=== PATIENT | female | born 1960 | race Caucasian/White ===

== ENCOUNTER 2017-05-23 19:31 | Emergency (ER) | payer BC ==
[~2017-05-23] VITALS: Ht 165.1 cm; Wt 49.9 kg
--- NOTE | 2017-05-23 19:50 | NUR ---
BIB CAREGIVER C/O L EYEBROW WOUND, R WRIST PAIN AND SWELLING, R BECKFORD ABRASION S/P TRIPPED AND FELL. DENIES LOC. BREATHING EVEN AND UNLABORED. NO SOB. VITALS STABLE. SAFETY AND COMFORT MEASURES IN PLACE. AWAITING MD ORDERS.
--- NOTE | 2017-05-23 20:25 | NUR ---
NEW IV STARTED ON LFA, 20 G. BLOOD DRAWN AND SENT TO LAB.
[2017-05-23 20:33] LABS: BASOPHILS # (AUTO) 0.1 /CMM (0.0-0.2); BASOPHILS % (AUTO) 0.7 % (0.0-2.0); EOSINOPHILS # (AUTO) 0.1 /CMM (0.0-0.7); EOSINOPHILS % (AUTO) 0.7 % (0.0-6.0); HEMATOCRIT 40 % (33-45); HEMOGLOBIN 13.7 g/dL (11.5-14.8); LYMPHOCYTES % (AUTO) 26.6 % (20.0-44.0); MEAN CORPUSCULAR HEMOGLOBIN 34 PG (26.0-33.0); MEAN CORPUSCULAR HGB CONC 34 g/dl (31.0-36.0); MEAN CORPUSCULAR VOLUME 99 fL (82-100); MONOCYTES % (AUTO) 9.2 % (2.0-12.0); NEUTROPHILS % (AUTO) 62.8 % (43.0-81.0); PLATELET COUNT (AUTO) 264 /CMM (150-450); RED BLOOD CELL COUNT(AUTO) 4.07 MIL/uL (4.0-5.2); WHITE BLOOD COUNT (AUTO) 11.1 K/uL (4.3-11.0)
[2017-05-23 20:48] LABS: INR 0.97 (0.87-1.13); PROTHROMBIN TIME 10.1 SECS (9.5-12.7)
[2017-05-23 21:02] LABS: CALCIUM, SERUM 9.1 mg/dL (8.5-10.1); CARBON DIOXIDE 28 mmol/L (21-32); CHLORIDE 102 mmol/L (98-107); CREATININE 0.7 mg/dL (0.6-1.3); GLUCOSE 98 mg/dL (74-106); POTASSIUM 3.7 mmol/L (3.5-5.1); SODIUM SERUM 138 mmol/L (136-145); UREA NITROGEN, BLOOD 7 mg/dL (7-18)
[2017-05-23 21:10] LABS: TROPONIN I < 0.017 ng/mL (0.00-0.056)
[2017-05-23] MEDS ORDERED: LIDOCAINE /MPF 1% VIAL 5 ML VIAL ONE (21:59)
[2017-05-23 22:49] LABS: APPEARANCE,URINE CLEAR (CLEAR); BILIRUBIN,URINE NEGATIVE (NEGATIVE); BLOOD, URINE NEGATIVE Ery/uL (NEGATIVE); COLOR,URINE YELLOW (YELLOW); KETONES,URINE NEGATIVE (NEGATIVE); LEUKOCYTE ESTERASE ,URINE 1+ (NEGATIVE); NITRITE, URINE NEGATIVE (NEGATIVE); PROTEIN,URINE NEGATIVE (NEGATIVE); UGLUCOSE NEGATIVE (NEGATIVE); UROBILINOGEN,URINE 0.2 EU/dL (0.2)
[2017-05-23 23:02] LABS: BACTERIA,URINE Rare /HPF (None Seen); RBC,URINE 0-2 /HPF (0-2); SQUAMOUS EPITHELIAL CELL,UR 0-2 /HPF (None Seen)
[2017-05-23 23:17] VITALS: BP 151/86
--- NOTE | 2017-05-23 23:20 | NUR ---
Patient discharged to home in stable condition. Written and verbal after care instructions given. Patient verbalizes understanding of instruction.
== END 2017-05-23 23:15 | disposition home or self-care (01) ==
LOC: ER 19:35
DX: S01.112A Laceration without foreign body of left eyelid and periocular area, initial encounter (principal); N39.0 Urinary tract infection, site not specified; C56.9 Malignant neoplasm of unspecified ovary; G40.909 Epilepsy, unspecified, not intractable, without status epilepticus; G93.89 Other specified disorders of brain; J45.909 Unspecified asthma, uncomplicated; R79.1 Abnormal coagulation profile; Z91.012 Allergy to eggs; Z91.011 Allergy to milk products; Z91.013 Allergy to seafood; Z91.018 Allergy to other foods; Z91.09 Other allergy status, other than to drugs and biological substances; W01.198A Fall on same level from slipping, tripping and stumbling with subsequent striking against other object, initial encounter; Y93.89 Activity, other specified; Y92.89 Other specified places as the place of occurrence of the external cause; Y99.9 Unspecified external cause status
CPT/HCPCS: 12011; 36415; 70450; 71010; 73110; 73590; 80048; 81001; 82962; 84484; 85025; 85730; 87086; 93005; 99285; A4606; A6402 ×2; J3490; 81000-TC; Z7610

== ENCOUNTER 2017-07-23 11:39 | Emergency (ER) | payer BC ==
[~2017-07-23] VITALS: Ht 165.1 cm; Wt 45.4 kg
--- NOTE | 2017-07-23 11:40 | NUR ---
DENNIS FROM HOME C/O HEADACHE AND LOWER BACK PAIN S/P FALL LAST THURSDAY. PATIENT APPEARS IN NO APPARENT DISTRESS. VSS
--- NOTE | 2017-07-23 11:40 | NUR ---
DENNIS FROM HOME C/O HEADACHE AND LOWER BACK PAIN S/P FALL LAST THURSDAY. PATIENT APPEARS IN NO APPARENT DISTRESS. VSS
[2017-07-23] MEDS ORDERED: KETOROLAC TROMETHAMINE INJ 30 MG/ML VIAL ONE (12:39)
[2017-07-23] MEDS ORDERED: oxyCODONE/APAP (5/325 MG) 1 UDTAB TABLET ONE (12:39)
[2017-07-23] MEDS ORDERED: CYCLOBENZAPRINE 10 MG TABLET ONE (12:40)
[2017-07-23] MEDS ORDERED: CYCLOBENZAPRINE 10 MG TABLET PO ONE (13:00)
[2017-07-23] MEDS ORDERED: KETOROLAC TROMETHAMINE INJ 60 MG/2 ML VIAL IM ONE (13:00)
[2017-07-23] MEDS ORDERED: oxyCODONE/APAP (5/325 MG) 1 UDTAB TABLET PO ONE (13:00)
--- NOTE | 2017-07-23 15:17 | NUR ---
feels better; DC home with her family
[2017-07-23 15:18] VITALS: BP 128/68
--- NOTE | 2017-07-23 15:18 | NUR ---
Patient discharged to home in stable condition. Written and verbal after care instructions given. Patient verbalizes understanding of instruction.
== END 2017-07-23 15:19 | disposition home or self-care (01) ==
LOC: ER 11:40
DX: G89.29 Other chronic pain (principal); M54.5 Low back pain; R51 Headache; J45.909 Unspecified asthma, uncomplicated; Z91.011 Allergy to milk products; Z91.013 Allergy to seafood; Z91.018 Allergy to other foods; Z91.012 Allergy to eggs
CPT/HCPCS: 72110; 96372; 99284; A4606; J1885; Z7610

== ENCOUNTER 2017-09-02 20:58 | Inpatient (IN) | payer BC ==
[~2017-09-02] VITALS: Ht 162.6 cm; Wt 52.2 kg
[2017-09-02 21:42] LABS: BASOPHILS % (AUTO) 0.4 % (0.0-2.0); EOSINOPHILS % (AUTO) 0.1 % (0.0-6.0); HEMATOCRIT 49 % (33-45); HEMOGLOBIN 17.4 g/dL (11.5-14.8); LYMPHOCYTES # (AUTO) 0.9 /CMM (0.8-4.8); LYMPHOCYTES % (AUTO) 8.3 % (20.0-44.0); MEAN CORPUSCULAR HEMOGLOBIN 34 PG (26.0-33.0); MEAN CORPUSCULAR HGB CONC 35 g/dl (31.0-36.0); MEAN CORPUSCULAR VOLUME 96 fL (82-100); MONOCYTES # (AUTO) 0.4 /CMM (0.1-1.30); MONOCYTES % (AUTO) 3.6 % (2.0-12.0); NEUTROPHILS % (AUTO) 87.6 % (43.0-81.0); PLATELET COUNT (AUTO) 236 /CMM (150-450); RDW COEFFICIENT OF VARIATION 12.1 (11.5-15.0); RED BLOOD CELL COUNT(AUTO) 5.15 MIL/uL (4.0-5.2); WHITE BLOOD COUNT (AUTO) 10.3 K/uL (4.3-11.0)
[2017-09-02 21:53] LABS: CALCIUM, SERUM 8.4 mg/dL (8.5-10.1); CARBON DIOXIDE 25 mmol/L (21-32); CHLORIDE 99 mmol/L (98-107); CREATININE 1.3 mg/dL (0.6-1.3); GLUCOSE 99 mg/dL (74-106); POTASSIUM 3.6 mmol/L (3.5-5.1); SODIUM SERUM 133 mmol/L (136-145); UREA NITROGEN, BLOOD 31 mg/dL (7-18)
[2017-09-02 21:56] LABS: INR 1.07 (0.87-1.13)
[2017-09-02 22:02] LABS: TROPONIN I < 0.017 ng/mL (0.00-0.056)
[2017-09-02] MEDS ORDERED: IV NS 0.9% 1,000 ML BAG IV ONE (22:30)
[2017-09-02] MEDS ORDERED: ASPIRIN 325 MG TABLET PO ONE (22:30)
[2017-09-02 23:00] VITALS: BP 107/69
[2017-09-02] MEDS ORDERED: PRED20TA PO (23:28)
[2017-09-02] MEDS ORDERED: GABA-534 PO (23:28)
[2017-09-02] MEDS ORDERED: IV NS 0.9% 1,000 ML IV PRN (23:40)
[2017-09-03] MEDS ORDERED: ONDANSETRON HCL/PF 4 MG/2 ML VIAL IVP PRN
[2017-09-03] MEDS ORDERED: ZOLPIDEM TARTRATE 5 MG TABLET PO PRN
[2017-09-03] MEDS ORDERED: ACETAMINOPHEN 325 MG TABLET PO PRN
[2017-09-03] MEDS ORDERED: oxyCODONE/APAP (5/325 MG) 1 UDTAB TABLET ONE (00:42)
[2017-09-03] MEDS ORDERED: SUCRALFATE 1 G/10 ML UDC ONE (00:43)
[2017-09-03] MEDS ORDERED: GABAPENTIN 300 MG CAPSULE ONE (00:44)
[2017-09-03] MEDS: SUCRALFATE 1 G/10 ML UDC PO SCH ×5 (01:05→23:32)
[2017-09-03] MEDS: oxyCODONE/APAP (5/325 MG) 1 UDTAB TABLET PO PRN ×3 (01:06→20:14)
[2017-09-03] MEDS ORDERED: ENOXAPARIN SODIUM 40 MG/0.4 ML DISP.SYRIN SQ ONE (01:32)
[2017-09-03] MEDS ORDERED: QUET50TA PO (01:55)
[2017-09-03] MEDS ORDERED: NITR100C PO (01:55)
[2017-09-03] MEDS ORDERED: SULF500T8 PO (01:55)
[2017-09-03] MEDS ORDERED: AMIT10TA6 PO (01:55)
[2017-09-03] MEDS ORDERED: DULO30CA2 PO (01:55)
[2017-09-03] MEDS ORDERED: PRED5TAB48 PO (01:55)
[2017-09-03 04:00] VITALS: BP 108/65
[2017-09-03 06:45] LABS: ALBUMIN 2.8 g/dL (3.4-5.0); BILIRUBIN,TOTAL 0.4 mg/dL (0.2-1.0); CALCIUM, SERUM 7.9 mg/dL (8.5-10.1); CREATININE 0.7 mg/dL (0.6-1.3); MAGNESIUM 1.8 mg/dL (1.8-2.4); PHOSPHORUS 2.4 mg/dL (2.5-4.9); POTASSIUM 3.2 mmol/L (3.5-5.1); TOTAL PROTEIN, SERUM 5.5 g/dL (6.4-8.2)
[2017-09-03 06:46] LABS: BASOPHILS % (AUTO) 0.2 % (0.0-2.0); EOSINOPHILS % (AUTO) 0.2 % (0.0-6.0); HEMATOCRIT 41 % (33-45); HEMOGLOBIN 14.5 g/dL (11.5-14.8); LYMPHOCYTES # (AUTO) 0.8 /CMM (0.8-4.8); LYMPHOCYTES % (AUTO) 11.9 % (20.0-44.0); MEAN CORPUSCULAR HEMOGLOBIN 34 PG (26.0-33.0); MEAN CORPUSCULAR HGB CONC 35 g/dl (31.0-36.0); MEAN CORPUSCULAR VOLUME 97 fL (82-100); MONOCYTES # (AUTO) 0.2 /CMM (0.1-1.30); MONOCYTES % (AUTO) 3.7 % (2.0-12.0); NEUTROPHILS # (AUTO) 5.3 /CMM (1.8-8.9); PLATELET COUNT (AUTO) 190 /CMM (150-450); RDW COEFFICIENT OF VARIATION 12.8 (11.5-15.0); RED BLOOD CELL COUNT(AUTO) 4.27 MIL/uL (4.0-5.2); WHITE BLOOD COUNT (AUTO) 6.3 K/uL (4.3-11.0)
[2017-09-03 06:56] LABS: THYROID STIMULATING HORMONE 4.114 uIU/mL (0.358-3.74)
[2017-09-03] MEDS ORDERED: ENOXAPARIN SODIUM 40 MG/0.4 ML DISP.SYRIN SQ SCH ×3 (07:05→21:00)
[2017-09-03 08:00] VITALS: BP 104/65
[2017-09-03] MEDS ORDERED: predniSONE 20 MG TABLET PO SCH (09:00)
[2017-09-03] MEDS: POTASSIUM CHLORIDE 20 MEQ TAB.PRT.SR PO SCH ×2 (09:32→10:50)
[2017-09-03] MEDS: PANTOPRAZOLE 40 MG TABLET.DR PO SCH (09:33)
[2017-09-03] MEDS: ASPIRIN EC 81 MG TABLET.DR PO SCH (09:34)
[2017-09-03] MEDS: MORPHINE SULFATE INJ 4 MG/ML DISP.SYRIN IV PRN (11:42)
[2017-09-03 13:33] LABS: HEMOGLOBIN 14.6 g/dL (11.5-14.8)
[2017-09-03] MEDS ORDERED: NEUTRA PHOS 1 POWD.PACKET PO ONE (14:30)
[2017-09-03 20:00] VITALS: BP 118/68
[2017-09-03] MEDS ORDERED: GABAPENTIN 300 MG CAPSULE PO SCH (22:00)
[2017-09-04] MEDS: SUCRALFATE 1 G/10 ML UDC PO SCH ×2 (06:11→12:25)
[2017-09-04 06:30] LABS: BASOPHILS % (AUTO) 0.5 % (0.0-2.0); EOSINOPHILS # (AUTO) 0.1 /CMM (0.0-0.7); EOSINOPHILS % (AUTO) 3.1 % (0.0-6.0); HEMATOCRIT 40 % (33-45); HEMOGLOBIN 14.1 g/dL (11.5-14.8); LYMPHOCYTES # (AUTO) 1.1 /CMM (0.8-4.8); LYMPHOCYTES % (AUTO) 25.2 % (20.0-44.0); MEAN CORPUSCULAR HEMOGLOBIN 34 PG (26.0-33.0); MEAN CORPUSCULAR HGB CONC 35 g/dl (31.0-36.0); MEAN CORPUSCULAR VOLUME 96 fL (82-100); MONOCYTES # (AUTO) 0.4 /CMM (0.1-1.30); MONOCYTES % (AUTO) 8.5 % (2.0-12.0); NEUTROPHILS # (AUTO) 2.8 /CMM (1.8-8.9); NEUTROPHILS % (AUTO) 62.7 % (43.0-81.0); PLATELET COUNT (AUTO) 181 /CMM (150-450); RDW COEFFICIENT OF VARIATION 12.8 (11.5-15.0); RED BLOOD CELL COUNT(AUTO) 4.16 MIL/uL (4.0-5.2); WHITE BLOOD COUNT (AUTO) 4.5 K/uL (4.3-11.0)
[2017-09-04 06:42] LABS: CALCIUM, SERUM 8.4 mg/dL (8.5-10.1); CREATININE 0.5 mg/dL (0.6-1.3); MAGNESIUM 1.7 mg/dL (1.8-2.4); PHOSPHORUS 2.6 mg/dL (2.5-4.9); POTASSIUM 3.7 mmol/L (3.5-5.1)
[2017-09-04 08:00] VITALS: BP 116/69
[2017-09-04] MEDS ORDERED: ASPI-1152 PO (09:07)
[2017-09-04] MEDS: PANTOPRAZOLE 40 MG TABLET.DR PO SCH (09:42)
[2017-09-04] MEDS: ASPIRIN EC 81 MG TABLET.DR PO SCH (09:42)
[2017-09-04] MEDS ORDERED: MAGNESIUM OXIDE 400 MG TABLET PO ONE (12:00)
[2017-09-04] MEDS: MORPHINE SULFATE INJ 4 MG/ML DISP.SYRIN IV PRN (13:24)
[2017-09-04 16:07] VITALS: BP_SYST 116; BP_SYST 124; BP_DIAS 69; BP_DIAS 74
== END 2017-09-04 16:24 | disposition home or self-care (01) | DRG 205 ==
LOC: ER 20:59 → TELE 22:56 → MED 09-03 10:59
PROVIDERS: ADMIT Nurse Practitioner Acute Care; ATTEND Nurse Practitioner Acute Care
DX: M94.0 Chondrocostal junction syndrome [Tietze] (principal); N17.0 Acute kidney failure with tubular necrosis; E87.1 Hypo-osmolality and hyponatremia; A08.4 Viral intestinal infection, unspecified; E86.0 Dehydration; I49.9 Cardiac arrhythmia, unspecified; M19.90 Unspecified osteoarthritis, unspecified site; J45.909 Unspecified asthma, uncomplicated; G89.29 Other chronic pain
CPT/HCPCS: 36415; 71045-TC; 80048-TC; 80053-TC; 80061-TC; 83735-TC; 84100-TC; 84443-TC; 84484-TC; 85025-TC; 85027-TC; 85730-TC; 87081-TC; 93307-TC; A4606; J1650; J2270; J7030; Z7610

== ENCOUNTER 2019-01-01 10:12 | Inpatient (IN) | payer BC ==
[2019-01-01] VITALS (7 sets, daily range): BP systolic 111–138; BP diastolic 62–81
[~2019-01-01] VITALS: Ht 162.6 cm; Wt 47.2 kg
[~2019-01-01 10:12] MED LIST: AMIT10TA6 PO; ASPI-1152 PO; DULO30CA2 PO; GABA-534 PO; NITR100C PO; PRED5TAB48 PO; QUET50TA PO; SULF500T8 PO
--- NOTE | 2019-01-01 10:12 | NUR ---
BIB RA W C/O ABDOMINAL PAIN "I WOKE UP AT 5AM BECAUSE OF THE PAIN" ,DENIES N/V/D, ALSO C/O R&L SHOULDER PAIN RADIATES TO NECK AREA. TO ER BED 11, HOOKED TO MONITOR, CHANGED TO GOWN, PROVIDED W WARM BLANKET, AWAITING MD MEDLEY.
[2019-01-01] MEDS ORDERED: ASPI-605 PO (10:41)
[2019-01-01] MEDS ORDERED: MELO-105 PO (10:44)
[2019-01-01] MEDS ORDERED: TEMA15CA PO (10:44)
[2019-01-01] MEDS ORDERED: GABA100C GT (10:44)
[2019-01-01] MEDS ORDERED: QUET50TA PO (10:44)
[2019-01-01] MEDS ORDERED: HYDR-4303 PO (10:44)
[2019-01-01] MEDS ORDERED: MORPHINE SULFATE INJ 4 MG/ML DISP.SYRIN ONE ×2 (10:48→13:54)
[2019-01-01] MEDS ORDERED: ONDANSETRON HCL/PF 4 MG/2 ML VIAL ONE (10:48)
[2019-01-01] MEDS ORDERED: ONDANSETRON HCL/PF 4 MG/2 ML VIAL IVP ONE (11:00)
[2019-01-01] MEDS ORDERED: MORPHINE SULFATE INJ 2 MG/ML DISP.SYRIN IV ONE (11:00)
[2019-01-01] MEDS ORDERED: IV NS 0.9% 1,000 ML BAG IV ONE (11:00)
[2019-01-01 11:08] LABS: BASOPHILS # (AUTO) 0.1 /CMM (0.0-0.2); BASOPHILS % (AUTO) 0.3 % (0.0-2.0); EOSINOPHILS % (AUTO) 0.3 % (0.0-6.0); HEMATOCRIT 49 % (33-45); HEMOGLOBIN 16.5 g/dL (11.5-14.8); LYMPHOCYTES # (AUTO) 2.1 /CMM (0.8-4.8); LYMPHOCYTES % (AUTO) 13.3 % (20.0-44.0); MEAN CORPUSCULAR HGB CONC 34 g/dl (31.0-36.0); MEAN CORPUSCULAR VOLUME 99 fL (82-100); MONOCYTES # (AUTO) 0.4 /CMM (0.1-1.30); MONOCYTES % (AUTO) 2.6 % (2.0-12.0); NEUTROPHILS # (AUTO) 13.2 /CMM (1.8-8.9); NEUTROPHILS % (AUTO) 83.5 % (43.0-81.0); PLATELET COUNT (AUTO) 316 /CMM (150-450); RED BLOOD CELL COUNT(AUTO) 4.98 MIL/uL (4.0-5.2); WHITE BLOOD COUNT (AUTO) 15.8 K/uL (4.3-11.0)
[2019-01-01 11:10] LABS: APPEARANCE,URINE Clear (CLEAR); BILIRUBIN,URINE Negative (NEGATIVE); BLOOD, URINE Negative Ery/uL (NEGATIVE); COLOR,URINE Yellow (YELLOW); KETONES,URINE Negative (NEGATIVE); LEUKOCYTE ESTERASE ,URINE Trace (NEGATIVE); NITRITE, URINE Negative (NEGATIVE); PH,URINE 6.5 (5.0-8.0); PROTEIN,URINE Trace mg/dl (NEGATIVE); UGLUCOSE Negative (NEGATIVE); UROBILINOGEN,URINE 0.2 EU/dL (0.2)
[2019-01-01 11:15] LABS: CALCIUM, SERUM 9.2 mg/dL (8.5-10.1); CARBON DIOXIDE 24 mmol/L (21-32); CHLORIDE 102 mmol/L (98-107); CREATININE 0.7 mg/dL (0.6-1.3); GLUCOSE 107 mg/dL (74-106); POTASSIUM 3.9 mmol/L (3.5-5.1); SODIUM SERUM 139 mmol/L (136-145); UREA NITROGEN, BLOOD 13 mg/dL (7-18)
--- NOTE | 2019-01-01 11:20 | NUR ---
WHEELED OUT VIA [facility] FOR CT SCAN.
[2019-01-01 11:24] LABS: BACTERIA,URINE Few /HPF (None Seen); RBC,URINE 0-2 /HPF (0-2); SQUAMOUS EPITHELIAL CELL,UR Few /HPF (None Seen); WBC,URINE 0-2 /HPF (0-3)
[2019-01-01 11:25] LABS: ALANINE AMINOTRANSFERASE 30 U/L (12-78); ALKALINE PHOSPHATASE 65 U/L (46-116); ASPARTATE AMINOTRANSFERASE 17 U/L (15-37); BILIRUBIN,DIRECT 0.2 mg/dL (0.0-0.2); BILIRUBIN,TOTAL 0.6 mg/dL (0.2-1.0); LIPASE 151 U/L (73-393)
--- NOTE | 2019-01-01 11:55 | NUR ---
CALLED Fredy ENGLAND FOR CONSULT
[2019-01-01] MEDS ORDERED: PIPERACILLIN /TAZOBACTAM 3.375 G in IV D5W 50 ML IV ONE (12:00)
[2019-01-01] MEDS ORDERED: VANCOMYCIN 1 GM in IV D5W 250 ML IV ONE (12:00)
--- NOTE | 2019-01-01 12:25 | NUR ---
EPIC PAGED JANET TORRES FOR ADMISSION
--- NOTE | 2019-01-01 12:31 | NUR ---
ICU 261 JANET TORRES DX PERFORATED ULCER
--- NOTE | 2019-01-01 13:13 | NUR ---
REPORT GIVEN TO IMAN ONEAL OF ICU
[2019-01-01] MEDS ORDERED: MORPHINE SULFATE INJ 4 MG/ML DISP.SYRIN IV PRN (14:00)
[2019-01-01] MEDS ORDERED: ONDANSETRON HCL/PF 4 MG/2 ML VIAL IVP PRN (15:00)
[2019-01-01] MEDS: IV LR 1000 ML 1,000 ML IV PRN ×2 (15:55→19:51)
[2019-01-01] MEDS ORDERED: Z GUARD REMEDY 2 OZ OINT TP PRN (16:30)
--- NOTE | 2019-01-01 16:54 | NUR ---
RN NOTE 1535: Admitted 58 F, A/Ox4. Awake, aware for the reason of admission and aware for the plan of care. Accompanied by private caregiver. On 2LPM of O2 via NC. With YULIA PIVs. Started on IVF as ordered, LR @ 100. ST 100's on the monitor. Still noted with 10/10 Morphine and she is aware that she just took Morphine from ER. With abdomen, distended and with pain to touch. Kept NPO for prep of Sx. 1630: S/E by Dr. Murrell, explained re: the procedure, patient and caregiver at bedside verbalized understanding. 1640: OR people transported the patient, VSS but still with pain.
[2019-01-01] MEDS ORDERED: HYDROCORTISONE SOD SUCCINATE 100 MG/2 ML VIAL ONE (17:39)
[2019-01-01] MEDS ORDERED: LIDOCAINE HCL/PF 1% 30 ML SDV ONE (17:47)
[2019-01-01] MEDS ORDERED: BUPIVACAINE MPF 0.5% W/EPI INJ 30 ML VIAL ONE (17:47)
[2019-01-01] MEDS ORDERED: PIPERACILLIN /TAZOBACTAM 3.375 G in IV D5W 50 ML IV SCH (18:00)
--- NOTE | 2019-01-01 19:15 | NUR ---
ARCHITECTURAL MODEL MAKER. RECEIVED THE PT FROM OR VIA BED. S/P LAP WASHOUT GASTRIC BX LEANDER TOUCH REPAIR PERITONEAL ULCER . PT AWAKE, ALERT, VITALS STABLE. THOMAS ABDOMEN GALE INTACT. FC PATENT. OXYGEN 10L VIA MASK. HOB ELEVATED, MULTIPLE BRUISE AND SKIN TEAR NOTED. AFEBRILE. RT NARE NGT LOW INTERMITTENT SUCTION. WILL CONTINUE TO MONITOR VITALS.
[2019-01-01] MEDS ORDERED: FENTANYL PF 100MCG/2ML AMPUL ONE (19:16)
[2019-01-01] MEDS ORDERED: FLUCONAZOLE IN NS,PREMIX 400 MG in PREMIX 1 EA IV SCH ×2 (19:30)
[2019-01-01] MEDS: PIPERACILLIN /TAZOBACTAM 3.375 G in IV D5W 100 ML IV SCH (19:50)
[2019-01-01] MEDS: PANTOPRAZOLE 40 MG VIAL IV SCH (19:53)
--- NOTE | 2019-01-01 20:26 | NUR ---
I.S ORDERED PER MD. PT IS AWAKE AND ALERT. EXPLAINED TO HER HOW TO USE THE I.S. UNABLE TO DO IT RIGHT NOW. PT JUST CAME FROM SURGERY. SHE SAID SHE WILL DO IT TOMM
[2019-01-01] MEDS ORDERED: SODIUM CHLORIDE IV ONE (21:26)
[2019-01-01] MEDS ORDERED: FLUCONAZOLE IV ONE (21:26)
[2019-01-01] MEDS: MORPHINE SULFATE INJ 2 MG/ML DISP.SYRIN IV PRN (23:20)
[2019-01-02] VITALS (25 sets, daily range): BP systolic 124–159; BP diastolic 71–102
[2019-01-02] MEDS: PIPERACILLIN /TAZOBACTAM 3.375 G in IV D5W 100 ML IV SCH ×3 (02:58→17:25)
[2019-01-02 04:27] LABS: BASOPHILS % (AUTO) 0.1 % (0.0-2.0); HEMATOCRIT 39 % (33-45); HEMOGLOBIN 13.1 g/dL (11.5-14.8); LYMPHOCYTES # (AUTO) 0.6 /CMM (0.8-4.8); LYMPHOCYTES % (AUTO) 3.3 % (20.0-44.0); MEAN CORPUSCULAR HGB CONC 34 g/dl (31.0-36.0); MEAN CORPUSCULAR VOLUME 98 fL (82-100); MONOCYTES # (AUTO) 0.4 /CMM (0.1-1.30); MONOCYTES % (AUTO) 2.2 % (2.0-12.0); NEUTROPHILS # (AUTO) 18.8 /CMM (1.8-8.9); NEUTROPHILS % (AUTO) 94.4 % (43.0-81.0); PLATELET COUNT (AUTO) 254 /CMM (150-450); RED BLOOD CELL COUNT(AUTO) 3.95 MIL/uL (4.0-5.2); WHITE BLOOD COUNT (AUTO) 19.9 K/uL (4.3-11.0)
[2019-01-02 04:39] LABS: ALBUMIN 2.5 g/dL (3.4-5.0); BILIRUBIN,TOTAL 0.6 mg/dL (0.2-1.0); CALCIUM, SERUM 7.8 mg/dL (8.5-10.1); CREATININE 0.6 mg/dL (0.6-1.3); MAGNESIUM 1.9 mg/dL (1.8-2.4); PHOSPHORUS 3.3 mg/dL (2.5-4.9); POTASSIUM 4.3 mmol/L (3.5-5.1); TOTAL PROTEIN, SERUM 5.2 g/dL (6.4-8.2)
[2019-01-02 04:47] LABS: THYROID STIMULATING HORMONE 0.54 uIU/mL (0.358-3.74)
[2019-01-02] MEDS: IV LR 1000 ML 1,000 ML IV PRN ×2 (05:06→14:58)
[2019-01-02] MEDS: MORPHINE SULFATE INJ 2 MG/ML DISP.SYRIN IV PRN ×5 (06:34→22:24)
[2019-01-02] MEDS: PANTOPRAZOLE 40 MG VIAL IV SCH (09:10)
--- NOTE | 2019-01-02 10:00 | NUR ---
Called Dr. Fredy Murrell, updated about pt condition & H/H results. Per , okay to transfer out pt from ICU.
--- NOTE | 2019-01-02 11:00 | NUR ---
Pt seen & examined by eric Taylor to downgrade pt to BIN.
--- NOTE | 2019-01-02 15:03 | NUR ---
Pt seen & examined by Dr. Fredy Murrell w/ NNO.
--- NOTE | 2019-01-02 18:56 | NUR ---
RN CLOSING NOTES: No acute changes noted w/in shift. Pt remains A/O x 3. No SOB while on NC at 2lpm. SR on telemonitor. IV line access kept patent & intact w/ no s/sx of infection/infiltration noted w/ LR x 100 cc/hr infusing well. FC draining to BSB w/ adequate UOP. NGT kept on LIS still w/ bilious drainage. 2 GALE drains kept patent & intact w/ serosanguineous output. Safety precautions kept in place at all times. Bed in lowest & locked pos. Call light placed w/in reach. Will endorse to PM RN for LASHAWN, awaiting to be transferred to BIN. Addendum: 01/02/19 at 1924 by NOLVIA XIAO RN Addendum: Use of Incentive Spirometry & breathing techniques reinforced w/ verbalization of understanding.
--- NOTE | 2019-01-02 20:00 | NUR ---
RN INITIAL NOTES: Received pt in bed, Pt A/O x 3. No SOB while on NC at 2lpm. SR on telemonitor. IV line access kept patent & intact w/ no s/sx of infection/infiltration noted w/ LR x 100 cc/hr infusing well. FC draining to BSB w/ adequate UOP. NGT kept on LIS still w/ bilious drainage. 2 GALE drains kept patent & intact w/ serosanguineous output. Safety precautions kept in place at all times. Bed in lowest & locked pos. Call light placed w/in reach. Will cont to monitor . -
[2019-01-02] MEDS: FLUCONAZOLE IN NS,PREMIX 100 MG in PREMIX 1 EA IV SCH ×2 (20:34)
[2019-01-03] VITALS (24 sets, daily range): BP systolic 113–177; BP diastolic 60–120
[2019-01-03] MEDS: PIPERACILLIN /TAZOBACTAM 3.375 G in IV D5W 100 ML IV SCH ×3 (02:07→17:10)
[2019-01-03] MEDS: IV LR 1000 ML 1,000 ML IV PRN ×2 (03:26→11:58)
[2019-01-03 04:19] LABS: BASOPHILS % (AUTO) 0.2 % (0.0-2.0); EOSINOPHILS % (AUTO) 0.8 % (0.0-6.0); HEMATOCRIT 40 % (33-45); LYMPHOCYTES # (AUTO) 0.8 /CMM (0.8-4.8); LYMPHOCYTES % (AUTO) 4.5 % (20.0-44.0); MEAN CORPUSCULAR HGB CONC 33 g/dl (31.0-36.0); MEAN CORPUSCULAR VOLUME 99 fL (82-100); MONOCYTES # (AUTO) 0.4 /CMM (0.1-1.30); MONOCYTES % (AUTO) 2.4 % (2.0-12.0); NEUTROPHILS # (AUTO) 17.2 /CMM (1.8-8.9); NEUTROPHILS % (AUTO) 92.1 % (43.0-81.0); PLATELET COUNT (AUTO) 250 /CMM (150-450); RED BLOOD CELL COUNT(AUTO) 4.01 MIL/uL (4.0-5.2); WHITE BLOOD COUNT (AUTO) 18.6 K/uL (4.3-11.0)
[2019-01-03] MEDS: MORPHINE SULFATE INJ 2 MG/ML DISP.SYRIN IV PRN ×5 (04:24→23:37)
[2019-01-03 04:26] LABS: CALCIUM, SERUM 8.4 mg/dL (8.5-10.1); CREATININE 0.7 mg/dL (0.6-1.3); MAGNESIUM 1.8 mg/dL (1.8-2.4); PHOSPHORUS 2.8 mg/dL (2.5-4.9); POTASSIUM 4.1 mmol/L (3.5-5.1)
--- NOTE | 2019-01-03 06:48 | NUR ---
RN CLOSING NOTES: No acute changes noted w/in shift. Pt remains A/O x 3. No SOB while on NC at 3lpm. SR on telemonitor. IV line access kept patent & intact w/ no s/sx of infection/infiltration noted w/ LR x 100 cc/hr infusing well. FC draining to BSB w/ adequate UOP. NGT kept on LIS still w/ bilious drainage. 2 GALE drains kept patent & intact w/ serosanguineous output. Safety precautions kept in place at all times. Bed in lowest & locked pos. Call light placed w/in reach. Will endorse to AM RN for LASHAWN.
--- NOTE | 2019-01-03 07:30 | NUR ---
FIG CAPRIFIER OPENING NOTES: Received report from pm nurse.pt in bed, Pt A/O x 4. No SOB while on NC at 2lpm. SR on telemonitor HR 91. IV line patent & intact w/ no s/sx of infection/infiltration noted w/ LR x 100 cc/hr infusing well. FC draining clear yellow urine. NGT low intermittent suction. 2 GALE drains kept patent & intact w/ serosanguineous output. Safety precautions kept in place . Bed in lowest & locked position. Call light placed w/in reach.bed alarm on . Will cont to monitor .
--- NOTE | 2019-01-03 08:55 | NUR ---
WOUND CARE CONSULT: PT PRESENTS WITH LEFT ARM SKIN TEARS, MULTIPLE AREAS OF BRUISING WITH FRAGILE SKIN AND HEALED AREAS TO UPPER EXTREMITIES, RT LOWER LEG WOUND AND BRUISING WITH FRAGILE SKIN TO BILATERAL LOWER LEGS, PRESENT ON ADMISSION. PT HAS VERY BONY SACRAL AREA. PT NOTED TO HAVE ABDOMINAL INCISION WITH RT AND LEFT GALE DRAINS. DEFER TO SURGEON FOR ABDOMINAL INCISION AND GALE DRAINS. RECOMMEND DPM CONSULT FOR RT LOWER LEG. DR GAMBOA NOTIFIED OF CONSULT REQUEST. PT HAS HISTORY OF CHRONIC STEROID USE. WILL SEE PRN. BALTAZAR IN AGREEMENT WITH PLAN OF CARE. PT ON LIANET [facility] AIRLO BED. Addendum: 01/03/19 at 0858 by TREY AMBROSIO Amended: Links added. Addendum: 01/03/19 at 0901 by TREY AMBROSIO DEFER TO DPM FOR LOWER EXTREMITY WOUND TREATMENT PLAN.
[2019-01-03] MEDS: NEXIUM 40 MG VIAL IV SCH (09:04)
[2019-01-03] MEDS ORDERED: GLUCAGON,HUMAN RECOMBINANT 1 MG/VIAL VIAL IM ONE (11:05)
--- NOTE | 2019-01-03 11:30 | NUR ---
BRANCH GENERAL MANAGER NOTE MADE AWARE ABOUT LOW BS.GOT NEW ORDERS.PATIENT REFUSED TO RECHECK BS.EDUCATED.OFFERED X3.STILL REFUSING.
[2019-01-03] MEDS ORDERED: IV NS 0.9% 500 ML IV ONE (13:30)
[2019-01-03] MEDS: IV D5/ 0.9% NACL 1,000 ML IV PRN ×2 (14:08→23:44)
--- NOTE | 2019-01-03 16:00 | NUR ---
COMMUNITY PHARMACIST NOTE SEEN BY ,UPDATED ABOUT PATIENT CONDITION WITH LABS.GOT NEW ORDERS.OK TO KEEP SBP ELEVATED UP TO 165.CHANGED IV TO D5NS .NS 50ML BOLUS.AND PT EVAL.SEEN BY .DEFER TO WOUND CARE.
--- NOTE | 2019-01-03 19:30 | NUR ---
STAFF CONSULTANT CLOSING NOTE ENDORSED TO PM NURSE FOR LASHAWN.
--- NOTE | 2019-01-03 19:30 | NUR ---
RN NOTES RECEIVED PT AOX4 ABLE TO MAKE KNOWN NEEDS. COMPLAINING OF MID ABDOMEN PAIN. EDUCATE PATIENT REGARDING S/P SURGERY. DUE TO PERFORATED PYLORIC ULCER/ PERITONITIS. PT VERBALIZED UNDERSTANDING. WITH O2 2-3 LPM VIA NC. SR/ST ON TELE MONITOR. RIGHT NARES LIS WITH BILIOUS MODERATE AMT OUTPUT CONNECTED TO SUCTION. SKIN CARE PROVIDED. KEPT PT CLEAN AND DRY. LEFT AND RIGHT SURGICAL SITE INTACT. CALL LIGHT KEPT WITHIN EASY REACH. CALL LIGHT KEPT WITHIN EASY REACH. CONTINUE TO MONITOR.
[2019-01-03] MEDS: FLUCONAZOLE IN NS,PREMIX 100 MG in PREMIX 1 EA IV SCH ×2 (20:06)
[2019-01-04] VITALS (13 sets, daily range): BP systolic 135–185; BP diastolic 69–110
[2019-01-04] MEDS: PIPERACILLIN /TAZOBACTAM 3.375 G in IV D5W 100 ML IV SCH ×3 (03:02→17:33)
[2019-01-04] MEDS: MORPHINE SULFATE INJ 2 MG/ML DISP.SYRIN IV PRN ×5 (04:10→23:53)
[2019-01-04 04:23] LABS: BASOPHILS # (AUTO) 0.1 /CMM (0.0-0.2); BASOPHILS % (AUTO) 0.4 % (0.0-2.0); EOSINOPHILS % (AUTO) 0.7 % (0.0-6.0); HEMATOCRIT 38 % (33-45); HEMOGLOBIN 12.9 g/dL (11.5-14.8); LYMPHOCYTES # (AUTO) 0.6 /CMM (0.8-4.8); LYMPHOCYTES % (AUTO) 4.3 % (20.0-44.0); MEAN CORPUSCULAR HGB CONC 34 g/dl (31.0-36.0); MEAN CORPUSCULAR VOLUME 97 fL (82-100); MONOCYTES # (AUTO) 0.6 /CMM (0.1-1.30); MONOCYTES % (AUTO) 4.2 % (2.0-12.0); NEUTROPHILS # (AUTO) 13.2 /CMM (1.8-8.9); NEUTROPHILS % (AUTO) 90.4 % (43.0-81.0); PLATELET COUNT (AUTO) 223 /CMM (150-450); WHITE BLOOD COUNT (AUTO) 14.6 K/uL (4.3-11.0)
[2019-01-04 04:36] LABS: CALCIUM, SERUM 8.5 mg/dL (8.5-10.1); CREATININE 0.5 mg/dL (0.6-1.3); MAGNESIUM 1.3 mg/dL (1.8-2.4); PHOSPHORUS 2.3 mg/dL (2.5-4.9); POTASSIUM 3.3 mmol/L (3.5-5.1)
--- NOTE | 2019-01-04 05:10 | NUR ---
RN NOTES RECEIVED PT FROM ICU IN STABLE CONDITION. PLACED ON 2L O2 VIA NC. R NARES NGT INTACT AND IN PLACED, CONNECTED TO LIS, NOTED WITH BILOUS OUTPUT. R AND L GALE DRAIN INTACT. FC INTACT AND IN PLACED, DRAINING BY GRAVITY YELLOW COLORED URINE. RAC G22 AND RWIST G22 IV LINE NOTED LEAKING. IV LINE D/NIDHI, PRESSURE DRESSING PLACED. PT REFUSED TO INSERT ANOTHER IV LINE, REQUESTING FOR MIDLINE/PICC LINE. NOTIFIED KENO MANAGER RENEA, INFORMED KENO MANAGER THAT PT ON IV FLUIDS AND IV ATB. PER KENO MANAGER OK TO ORDER MIDLINE.
--- NOTE | 2019-01-04 05:30 | NUR ---
RN NOTES PT IN STABLE CONDITION. PAIN MEDICINE GIVEN ORDERED AND PER PATIENT REQUESTED. BED BATH DONE . NGT CONTINUE ON LIS. F/C DRAINED WITH CLEAR COLOR URINE. TRANSFERRED PATIENT TO BIN FLOOR ROOM 109 REPORT GIVEN TO HAMMAD STEWARD RN FOR CONTINUITY OF CARE TO AM NURSE.
--- NOTE | 2019-01-04 06:50 | NUR ---
RN NOTES PT IN STABLE CONDITION. NO ACUTE CHANGES NOTED SINCE TRANSFERRED. SAFETY MEASURES IN PLACED. ALL NEEDS ANTICIPATED. SAFETY MEASURES OBSERVED AT ALL TIMES. ENDORSED TO AM RN FOR LASHAWN
--- NOTE | 2019-01-04 08:00 | NUR ---
TELE1/RN AM SHIFT INITIAL NOTES RECEIVED PT AWAKE IN BED, PT A/O X 4, COMPLAINT OF PAIN IN THE ABDOMEN RATED 8/10. ON 2L O2 VIA N/C SATURATING @ 97%, RESPIRATIONS UNLABORED AND EVEN. ON TELE WITH SINUS RHYTHM, HR 95. NO HAS NO IV SITE AT THIS TIME, AWAITING FOR MID-LINE INSERTION. GALE DRAINS INTACT WITH SCANT SEROSANGUINEOUS OUTPUT. PT ON NPO STATUS AT THIS TIME. CL WITHIN REACHED AND SAFETY MAINTAINED. ON GOING MONITORING.
[2019-01-04] MEDS: NEXIUM 40 MG VIAL IV SCH (08:22)
[2019-01-04] MEDS: POTASSIUM CL. PREMIX PERIPHER. 50 ML IV SCH ×3 (13:13→15:48)
[2019-01-04] MEDS: Magnesium 1GM/D5W 100ML PREMIX 100 ML IV SCH ×5 (13:13→18:31)
[2019-01-04] MEDS: IV D5/ 0.9% NACL 1,000 ML IV PRN (13:19)
--- NOTE | 2019-01-04 14:20 | NUR ---
TELE1/RN ROUNDS - CECI THAKUR PT SEEN & EXAMINED BY CECI THAKUR, NO NEW ORDERS RECEIVED AT THIS TIME. MONITORING CONTINUED.
[2019-01-04] MEDS ORDERED: Sodium Phosphate 15 MMOL in IV D5W 250 ML IV ONE (16:00)
--- NOTE | 2019-01-04 17:30 | NUR ---
TELE1/RN AFTERNOON ROUNDS PM CARE PROVIDED, NO CHANGE OF CONDITION. ON GOING MONITORING.
--- NOTE | 2019-01-04 19:30 | NUR ---
TAPE MAKER OPENING NOTES RECEIVED PT AWAKE IN BED, PT A/O X 4, COMPLAINT OF PAIN IN THE ABDOMEN RATED 8/10. WILL ADMINISTER PRN PAIN MEDICATION. ON RA, RESPIRATIONS EVEN AND UNLABORED. ON TELE WITH SINUS RHYTHM, HR 80S. NG TUBE ON L NARE, ON INTERMITTENT SUCTIONING, PT TOLERATING WELL. IV SITES R MIDLINE, FLUSHING WELL AND PATENT, SITE C/D/I. R HAND 24G, FLUSHING WELL AND PATENT, SITE C/D/I. IV FLUIDS RUNNING AND TOLERATING WELL, NO SIGNS OF INFILTRATION. GALE DRAINS INTACT WITH SCANT SEROSANGUINEOUS OUTPUT. PT ON NPO STATUS AT THIS TIME. CALL LIGHT WITHIN REACH AND SAFETY MEASURES MAINTAINED. ON GOING MONITORING.
--- NOTE | 2019-01-04 19:45 | NUR ---
TELE1/RN AM SHIFT END NOTES ALL NEEDS MET. NO CHANGE OF CONDITION NOTED DURING THE SHIFT. PT ENDORSED TO PM NURSE TO CONTINUE CARE. CL WITHIN REACHED AND SAFETY MAINTAINED.
[2019-01-04] MEDS: FLUCONAZOLE IN NS,PREMIX 100 MG in PREMIX 1 EA IV SCH ×2 (20:20)
--- NOTE | 2019-01-04 21:45 | NUR ---
ACID ETCH OPERATOR NOTES PATIENT BP ELEVATED 177/108 WITH HR 78. CALLED EPIC FOR MD ORDER. AWAITING FOR RESPONSE.
[2019-01-05] VITALS: BP 185/93
[2019-01-05] MEDS: PIPERACILLIN /TAZOBACTAM 3.375 G in IV D5W 100 ML IV SCH ×3 (02:06→17:14)
[2019-01-05 04:00] VITALS: BP 178/94
[2019-01-05] MEDS: IV D5/ 0.9% NACL 1,000 ML IV PRN ×2 (05:20→16:06)
--- NOTE | 2019-01-05 05:40 | NUR ---
ASSISTANT MANAGER NOTES PATIENT BP ELEVATED 185/93 DESPITE GIVING PAIN MEDICATION AT 2353. CALLED EPIC AGAIN FOR MD ORDER AT 0232. PAGED MD AT 0540 FOR PATIENT BP 178/94. MD STATED TO CONTINUE MONITORING. NO NEW ORDERS. WILL CONT TO MONITOR PT BP CLOSELY.
--- NOTE | 2019-01-05 06:41 | NUR ---
JAVA APPLICATION DEVELOPER CLOSING NOTES PATIENT AWAKE IN BED, PT A/O X 4, DENIES ANY PAIN AT THIS TIME. ON RA, RESPIRATIONS EVEN AND UNLABORED. ON TELE WITH SINUS RHYTHM, HR 67. NG TUBE ON R NARE, ON INTERMITTENT LOW SUCTIONING. IV SITES R MIDLINE, FLUSHING WELL AND PATENT, IV FLUIDS RUNNING ORDERED, PATIENT TOLERATING WELL, SITE C/D/I,NO SIGNS OF INFILTRATION. R HAND 24G, FLUSHING WELL AND PATENT, SITE C/D/I. GALE DRAINS INTACT WITH SCANT SEROSANGUINEOUS OUTPUT. PT ON NPO STATUS AT THIS TIME. CALL LIGHT WITHIN REACH AND SAFETY MEASURES MAINTAINED. ALL MD ORDERS ATTENDED. ALL NEEDS ANTICIPATED AND MET. WILL ENDORSE TO AM RN FOR LASHAWN.
[2019-01-05 07:19] LABS: BASOPHILS % (AUTO) 0.2 % (0.0-2.0); EOSINOPHILS % (AUTO) 0.4 % (0.0-6.0); HEMATOCRIT 36 % (33-45); HEMOGLOBIN 12.7 g/dL (11.5-14.8); LYMPHOCYTES # (AUTO) 0.8 /CMM (0.8-4.8); LYMPHOCYTES % (AUTO) 7.5 % (20.0-44.0); MEAN CORPUSCULAR HGB CONC 35 g/dl (31.0-36.0); MEAN CORPUSCULAR VOLUME 95 fL (82-100); MONOCYTES # (AUTO) 0.8 /CMM (0.1-1.30); MONOCYTES % (AUTO) 7.1 % (2.0-12.0); NEUTROPHILS % (AUTO) 84.8 % (43.0-81.0); PLATELET COUNT (AUTO) 254 /CMM (150-450); WHITE BLOOD COUNT (AUTO) 10.7 K/uL (4.3-11.0)
[2019-01-05 07:29] LABS: CALCIUM, SERUM 8.1 mg/dL (8.5-10.1); CREATININE 0.5 mg/dL (0.6-1.3); MAGNESIUM 1.9 mg/dL (1.8-2.4); PHOSPHORUS 2.8 mg/dL (2.5-4.9)
[2019-01-05] MEDS: MORPHINE SULFATE INJ 2 MG/ML DISP.SYRIN IV PRN ×3 (07:49→21:00)
[2019-01-05 08:00] VITALS: BP 184/92
--- NOTE | 2019-01-05 08:00 | NUR ---
TELE1/RN AM SHIFT INITIAL NOTES RECEIVED PT AWAKE IN BED, PT A/O X 4, COMPLAINT OF PAIN IN THE ABDOMEN RATED 10/10. ON 2L O2 VIA N/C SATURATING @ 957%, RESPIRATIONS UNLABORED AND EVEN, LUNG SOUNDS CLEAR. ON TELE WITH SINUS RHYTHM, HR 95. WITH ON GOING IV INFUSION OF D5NS @ 100CC/HR, MID LINE PATENT WITH NO S/S OF INFECTION. GALE DRAINS INTACT WITH SCANT AMOUNT OF SEROSANGUINEOUS OUTPUT, RIGHT NARE NG-TUBE INTACT ON INTERMITTENT LOS SUCTIONING NOTED WITH DARK BROWN COLORED GASTRIC MATERIAL. GOETZ CATHETER INTACT WITH CLEAR YELLOW URINE OUTPUT. WOUND DRESSINGS INTACT AND CLEAN. PT IS STILL ON NPO STATUS AT THIS TIME, PRN PAIN MEDICATION AND AM MEDS TO BE GIVEN. CL WITHIN REACHED AND SAFETY MAINTAINED. ON GOING MONITORING.
[2019-01-05] MEDS: NEXIUM 40 MG VIAL IV SCH (09:27)
[2019-01-05] MEDS ORDERED: DIATR MEGLU/DIATRIZOATE SODIUM 120 ML BOTTLE (GASTROGRAPHIN) ONE (10:47)
--- NOTE | 2019-01-05 11:00 | NUR ---
MS1/RN PHYSICAL THERAPY PT SEEN BY PHYSICAL THERAPIST. PT ABLE TO TRANSFER FROM BED TO CHAIR WITH MINIMUM ASSISTANCE. MONITORING CONTINUED.
[2019-01-05 12:00] VITALS: BP 169/94
[2019-01-05] MEDS: POTASSIUM CL. PREMIX PERIPHER. 50 ML IV SCH ×6 (12:27→19:28)
--- NOTE | 2019-01-05 13:32 | NUR ---
MS1/RN OFF RADIOLOGY - UPPER GI X-RAY PT LEFT MS1 UNIT VIA GURNEY IN STABLE CONDITION FOR UPPER GI X-RAY.
[2019-01-05 16:00] VITALS: BP 177/98
--- NOTE | 2019-01-05 19:25 | NUR ---
STUDENT LIFE DEAN OPENING NOTES PATIENT AWAKE IN BED, A/O X 4, COMPLAINS OF 8/10 PAIN, WILL ADMINISTER PRN PAIN MEDICATION. ON RA, RESPIRATIONS EVEN AND UNLABORED. NG TUBE ON R NARE, ON INTERMITTENT LOW SUCTIONING WITH DARK BROWN GASTRIC MATERIAL NOTED. IV SITES R MIDLINE, FLUSHING WELL AND PATENT, IV FLUIDS RUNNING ORDERED, PATIENT TOLERATING WELL, SITE C/D/I, NO SIGNS OF INFILTRATION. R HAND 24G, FLUSHING WELL AND PATENT, SITE C/D/I. GALE DRAINS INTACT WITH SCANT SEROSANGUINEOUS OUTPUT. PT ON NPO STATUS AT THIS TIME. CALL LIGHT WITHIN REACH AND SAFETY MEASURES MAINTAINED. GOETZ CATHETER DRAINING WELL. WILL CONTINUE TO MONITOR PATIENT. Addendum: 01/05/19 at 2313 by JUANA GARCIA RN CLARIFICATION: MS RN OPENING NOTES
--- NOTE | 2019-01-05 19:45 | NUR ---
MS1/RN AM SHIFT END NOTES ALL NEEDS MET. NO ACUTE CHANGE OF CONDITION NOTED DURING THE SHIFT. PT ENDORSED TO PM NURSE TO CONTINUE CARE. CL WITHIN REACHED AND SAFETY MAINTAINED.
[2019-01-05 20:00] VITALS: BP 179/107
[2019-01-05] MEDS: FLUCONAZOLE IN NS,PREMIX 100 MG in PREMIX 1 EA IV SCH ×2 (20:21)
[2019-01-06] MEDS: MORPHINE SULFATE INJ 2 MG/ML DISP.SYRIN IV PRN ×4 (00:02→22:36)
[2019-01-06] MEDS: PIPERACILLIN /TAZOBACTAM 3.375 G in IV D5W 100 ML IV SCH ×3 (02:50→17:54)
[2019-01-06] MEDS: IV D5/ 0.9% NACL 1,000 ML IV PRN (02:53)
[2019-01-06 04:00] VITALS: BP 159/100
--- NOTE | 2019-01-06 06:55 | NUR ---
MS RN CLOSING NOTES PATIENT AWAKE IN BED, A/O X 4. DENIES ANY PAIN RIGHT NOW. ON RA, RESPIRATIONS EVEN AND UNLABORED. NO ACUTE CHANGE THROUGHOUT SHIFT. ALL MD ORDERS ATTENDED. ALL NEEDS ANTICIPATED AND MET. IVF RUNNING ORDERED. CALL LIGHT WITHIN REACH AND SAFETY MEASURES MAINTAINED. WILL ENDORSE TO AM RN FOR LASHAWN.
--- NOTE | 2019-01-06 07:30 | NUR ---
MS RN OPENING NOTES RECEIVED PATIENT IN BED AWAKE, ALERT AND ORIENTED X4. NO PAIN OR ACUTE DISTRESS AT THIS TIME. RESPIRATION EVEN AND UNLABORED. PATIENT ON ROOM AIR WITH SAT OF 96%. SKIN IS DRY WARM TO TOUCH. PATIENT NOTED WITH RIGHT NG TUBE. INTACT AND PATENT. L AND R GALE DRAIN INTACT WELL. GOETZ CATH WITH YELLOW CLEAR OUTPUT. IV ACCESS ON R HAND #24 AND R MIDLINE INTACT AND PATENT. NO S/S OF INFECTION OR INFILTRATION. ALL NEEDS ANTICIPATED. BED LOCKED AND IN LOWEST POSITION. SAFETY MEASURES OBSERVED. PLAN OF CARE DISCUSSED. CALL LIGHT WITHIN REACHED. WILL CONTINUE TO MONITOR.
[2019-01-06 07:51] LABS: BASOPHILS # (AUTO) 0.2 /CMM (0.0-0.2); BASOPHILS % (AUTO) 1.4 % (0.0-2.0); CALCIUM, SERUM 8.3 mg/dL (8.5-10.1); CREATININE 0.6 mg/dL (0.6-1.3); EOSINOPHILS % (AUTO) 0.7 % (0.0-6.0); HEMATOCRIT 39 % (33-45); HEMOGLOBIN 13.4 g/dL (11.5-14.8); LYMPHOCYTES # (AUTO) 1.2 /CMM (0.8-4.8); LYMPHOCYTES % (AUTO) 9.5 % (20.0-44.0); MEAN CORPUSCULAR HGB CONC 34 g/dl (31.0-36.0); MEAN CORPUSCULAR VOLUME 96 fL (82-100); MONOCYTES # (AUTO) 1.5 /CMM (0.1-1.30); MONOCYTES % (AUTO) 11.6 % (2.0-12.0); NEUTROPHILS # (AUTO) 9.8 /CMM (1.8-8.9); NEUTROPHILS % (AUTO) 76.8 % (43.0-81.0); PLATELET COUNT (AUTO) 298 /CMM (150-450); POTASSIUM 3.3 mmol/L (3.5-5.1); RED BLOOD CELL COUNT(AUTO) 4.09 MIL/uL (4.0-5.2); WHITE BLOOD COUNT (AUTO) 12.7 K/uL (4.3-11.0)
[2019-01-06 08:00] VITALS: BP 167/96
[2019-01-06 08:06] VITALS: BP 167/96
[2019-01-06] MEDS: NEXIUM 40 MG VIAL IV SCH (09:28)
[2019-01-06] MEDS: SILVER SULFADIAZINE CREAM 25 GM TUBE TP SCH (09:28)
[2019-01-06] MEDS: POTASSIUM CL. PREMIX PERIPHER. 50 ML IV SCH ×2 (11:13→12:27)
[2019-01-06 16:00] VITALS: BP 151/93
[2019-01-06 17:31] VITALS: BP 151/93
--- NOTE | 2019-01-06 19:00 | NUR ---
MS/RN ENTRY NOTES PATIENT IN BES RESTING COMFORTABLY. NO S/S OF ACUTE DISTRESS NOTES. RESPIRATION EVEN AND UNLABORED. NO SOB NOTED. ALERT AND ORIENTED X4. DENIES ANY PAIN OR DISCOMFORT AT THIS TIME. GOETZ CATHETER INTACT, PATENT DRAINING WITH CLEAR YELLOW URINE. NG TUNE IN PLACE, INTACT, CONNECTED TO INTERMITTENT SUCTIONING. L AND R GALE DRAIN INTACT DRAINING WELL WITH YELLOW COLOR DRAINAGE. IV ACCESS ON R HAND #24 AND R MIDLINE INTACT AND PATENT. NO S/S OF INFECTION OR INFILTRATION NOTED AT THE SITES. SAFETY MAINTAINED. CONTINUE TO MONITOR THE PATIENT PER PLAN OF CARE. CALL LIGHT WITHIN REACHED.
--- NOTE | 2019-01-06 19:24 | NUR ---
MS RN NOTES PATIENT IN BED AWAKE, ALERT AND ABLE TO MAKE NEEDS KNOWN. NO PAIN OR ACUTE DISTRESS AT THIS TIME. RESPIRATION EVEN AND UNLABORED. SKIN IS DRY WARM TO TOUCH. NO ACUTE CHANGE THROUGHOUT SHIFT. IV ACCESS INTACT AND PATENT. FLUSHING WELL. GALE DRAIN INTACT AND DRAINING WELL. GASTRIC SUCTION INTACT WELL. ALL NEEDS ANTICIPATED. KEPT CLEAN AND DRY. CALL LIGHT WITHIN REACHED. BED LOCKED AND IN LOWEST POSITION. SAFETY MEASURES OBSERVED. WILL ENDORSE TO AM RN FOR LASHAWN.
[2019-01-06 20:00] VITALS: BP_SYST 150; BP_SYST 161; BP_DIAS 102; BP_DIAS 95
[2019-01-06] MEDS: FLUCONAZOLE IN NS,PREMIX 100 MG in PREMIX 1 EA IV SCH ×2 (20:07)
[2019-01-07] VITALS: BP_SYST 142; BP_SYST 154; BP_DIAS 100; BP_DIAS 78
[2019-01-07 00:01] VITALS: BP 146/67
--- NOTE | 2019-01-07 01:00 | NUR ---
MS/RN NOTES CALLED DR PURDY AT THIS TIME AND RELAYED TO DR THAT PATIENT BLOOD PRESSURE IS RUNNING HIGH. DR PURDY WITH ORDER TO CONTINUE TO MONITOR PATIENT.
[2019-01-07] MEDS: PIPERACILLIN /TAZOBACTAM 3.375 G in IV D5W 100 ML IV SCH ×3 (02:27→17:42)
[2019-01-07 04:00] VITALS: BP 148/84
--- NOTE | 2019-01-07 06:53 | NUR ---
MS/RN EXIT NOTES PATIENT IN BED, RESTING COMFORTABLY. NO S/S OF ACUTE DISTRESS NOTED. RESPIRATION EVEN AND UNLABORED. SAFETY MEASURES MAINTAINED. WILL ENDORSE TO AM RN FOR LASHAWN.
[2019-01-07 06:59] LABS: BASOPHILS # (AUTO) 0.1 /CMM (0.0-0.2); EOSINOPHILS % (AUTO) 1.8 % (0.0-6.0); HEMATOCRIT 37 % (33-45); HEMOGLOBIN 12.5 g/dL (11.5-14.8); LYMPHOCYTES # (AUTO) 1.4 /CMM (0.8-4.8); LYMPHOCYTES % (AUTO) 12.5 % (20.0-44.0); MEAN CORPUSCULAR HGB CONC 34 g/dl (31.0-36.0); MEAN CORPUSCULAR VOLUME 97 fL (82-100); MONOCYTES # (AUTO) 1.2 /CMM (0.1-1.30); MONOCYTES % (AUTO) 10.7 % (2.0-12.0); NEUTROPHILS # (AUTO) 8.4 /CMM (1.8-8.9); PLATELET COUNT (AUTO) 291 /CMM (150-450); RED BLOOD CELL COUNT(AUTO) 3.78 MIL/uL (4.0-5.2); WHITE BLOOD COUNT (AUTO) 11.4 K/uL (4.3-11.0)
[2019-01-07 07:16] LABS: CALCIUM, SERUM 7.4 mg/dL (8.5-10.1); CREATININE 0.5 mg/dL (0.6-1.3)
[2019-01-07 07:20] LABS: POTASSIUM 2.8 mmol/L (3.5-5.1)
--- NOTE | 2019-01-07 07:30 | NUR ---
MS RN OPENING NOTES RECEIVED PATIENT IN BED, AWAKE, ALERT AND ORIENTED X4. NO PAIN OR ACUTE DISTRESS AT THIS TIME. RESPIRATION EVEN AND UNLABORED. SKIN IS DRY WARM TO TOUCH. GALE DRAIN INTACT AND PATENT. DRAINING WELL. NG TUBE INTACT WELL WITH GASTRIC DRAINAGE. ALL NEEDS ANTICIPATED. CALL LIGHT WITHIN REACHED. BED LOCKED AND IN LOWEST POSITION. SAFETY MEASURES OBSERVED. WILL CONTINUE TO MONITOR.
[2019-01-07 08:00] VITALS: BP 159/93
--- NOTE | 2019-01-07 08:30 | NUR ---
RN NOTES RECEIVED A CALL FROM LAB FOR A CRITICAL LAB RESULT OF GLUCOSE OF 436. VERIFIED WHERE THE SPECIMEN WAS TAKEN. ORDERED ANOTHER RANDOM GLUCOSE TO BE TAKEN ON THE OPPOSITE ARM AND THE RESULT WAS 92. PATIENT REMAINS IN STABLE CONDITION. WILL CONTINUE TO MONITOR.
[2019-01-07] MEDS: SILVER SULFADIAZINE CREAM 25 GM TUBE TP SCH (09:16)
[2019-01-07] MEDS: NEXIUM 40 MG VIAL IV SCH (09:17)
[2019-01-07] MEDS: IV D5/ 0.9% NACL 1,000 ML IV PRN (09:26)
--- NOTE | 2019-01-07 09:50 | NUR ---
RN NOTES PATIENT WAS SEEN AND EVALUATED BY CECI TRISTAN WITH ORDERS TO REMOVE NG TUBE.
--- NOTE | 2019-01-07 10:15 | NUR ---
RN NOTES NG TUBE WAS REMOVED FROM PATIENT. PATIENT WAS ABLE TO TOLERATE THE REMOVAL WELL. REMAINS IN STABLE CONDITION. WILL CONTINUE TO MONITOR.
[2019-01-07] MEDS: MORPHINE SULFATE INJ 2 MG/ML DISP.SYRIN IV PRN ×2 (10:59→19:53)
[2019-01-07] MEDS: POTASSIUM CL. PREMIX PERIPHER. 50 ML IV SCH ×4 (13:09→16:16)
[2019-01-07 16:00] VITALS: BP 164/87
--- NOTE | 2019-01-07 18:45 | NUR ---
RN CLOSING NOTES PATIENT IN BED SLEEPING COMFORTABLY. NO PAIN OR ACUTE DISTRESS AT THIS TIME. RESPIRATION EVEN AND UNLABORED. SKIN IS DRY WARM TO TOUCH. REMAINS IN STABLE CONDITION THROUGHOUT THE SHIFT. BOTH IV ACCESS INTACT AND PATENT. ALL NEEDS ANTICIPATED. CALL LIGHT WITHIN REACHED. ENDORSED TO PM NURSE FOR LASHAWN.
[2019-01-07 20:00] VITALS: BP 153/85
[2019-01-07] MEDS: FLUCONAZOLE IN NS,PREMIX 100 MG in PREMIX 1 EA IV SCH ×2 (20:02)
[2019-01-08] MEDS: PIPERACILLIN /TAZOBACTAM 3.375 G in IV D5W 100 ML IV SCH ×3 (02:34→18:38)
[2019-01-08 04:00] VITALS: BP 156/79
[2019-01-08] MEDS: MORPHINE SULFATE INJ 2 MG/ML DISP.SYRIN IV PRN ×4 (06:36→22:44)
--- NOTE | 2019-01-08 07:15 | NUR ---
RN OPENING NOTES RECEIVED REPORT FROM SEAM FINISHER MANAGER MERCHANDISE. PT IS ASLEEP IN BED. NO OBVIOUS SIGNS OF SOB OR PAIN NOTED AT THIS PRESENT TIME. BED IS LOCKED AND IN LOWEST POSITION WITH GOETZ CATHETER DRAINING TO GRAVITY. PT HAS MORGAN MIDLINE RUNNING D5NS @ 100ML/HR. PT HAS TWO GALE DRAINS ACCORDING TO THE REPORT IN THE ABDOMEN. WILL CONTINUE TO MONITOR.
[2019-01-08 08:00] VITALS: BP 130/70
[2019-01-08] MEDS: NEXIUM 40 MG VIAL IV SCH (08:11)
[2019-01-08] MEDS: SILVER SULFADIAZINE CREAM 25 GM TUBE TP SCH (08:12)
[2019-01-08 12:19] LABS: BASOPHILS # (AUTO) 0.1 /CMM (0.0-0.2); BASOPHILS % (AUTO) 0.9 % (0.0-2.0); EOSINOPHILS % (AUTO) 1.4 % (0.0-6.0); HEMATOCRIT 39 % (33-45); HEMOGLOBIN 13.5 g/dL (11.5-14.8); LYMPHOCYTES # (AUTO) 1.7 /CMM (0.8-4.8); LYMPHOCYTES % (AUTO) 14.7 % (20.0-44.0); MEAN CORPUSCULAR HGB CONC 34 g/dl (31.0-36.0); MEAN CORPUSCULAR VOLUME 95 fL (82-100); MONOCYTES % (AUTO) 8.1 % (2.0-12.0); NEUTROPHILS # (AUTO) 8.9 /CMM (1.8-8.9); NEUTROPHILS % (AUTO) 74.9 % (43.0-81.0); PLATELET COUNT (AUTO) 387 /CMM (150-450); RED BLOOD CELL COUNT(AUTO) 4.14 MIL/uL (4.0-5.2); WHITE BLOOD COUNT (AUTO) 11.8 K/uL (4.3-11.0)
[2019-01-08 12:27] LABS: CALCIUM, SERUM 8.8 mg/dL (8.5-10.1); CREATININE 0.6 mg/dL (0.6-1.3); POTASSIUM 3.6 mmol/L (3.5-5.1)
[2019-01-08 13:56] LABS: BAND % (MANUAL) 4 % (0.0-5.0); EOSINOPHILS % (MANUAL) 3 % (0-4); LYMPHOCYTES % (MANUAL) 10 % (16-48); MONOCYTES % (MANUAL) 5 % (0-11.0); MYELOCYTES % 1 % (0-0); NEUTROPHILS % (MANUAL) 77 (42-76)
[2019-01-08 16:00] VITALS: BP 133/76
--- NOTE | 2019-01-08 19:30 | NUR ---
RN CLOSING NOTES GAVE REPORT TO CORRECTIONAL SUBSTANCE ABUSE COUNSELOR BATTERY WRECKER OPERATOR. PT IS AWAKE IN BED. PT DENIES ANY SOB OR PAIN NOTED AT THIS PRESENT TIME. BED IS LOCKED AND IN LOWEST POSITION WITH GOETZ CATHETER DRAINING TO GRAVITY. PT HAS MORGAN MIDLINE RUNNING D5NS @ 100ML/HR. PT HAS TWO GALE DRAINS OUTPUT LESS THAN 10 ML. WILL ENDORSE CONTINUITY OF CARE TO CORRECTIONAL SUBSTANCE ABUSE COUNSELOR BATTERY WRECKER OPERATOR. PT VOIDED IN RESTROOM.
[2019-01-08 20:00] VITALS: BP 137/77
[2019-01-08] MEDS: FLUCONAZOLE IN NS,PREMIX 100 MG in PREMIX 1 EA IV SCH ×2 (20:37)
[2019-01-09] MEDS: PIPERACILLIN /TAZOBACTAM 3.375 G in IV D5W 100 ML IV SCH ×3 (02:24→17:28)
[2019-01-09 04:00] VITALS: BP 112/77
[2019-01-09] MEDS: MORPHINE SULFATE INJ 2 MG/ML DISP.SYRIN IV PRN ×5 (05:08→23:36)
--- NOTE | 2019-01-09 07:09 | NUR ---
MS RN OPENING NOTES RECEIVED PATIENT AWAKE IN BED IN NO ACUTE SIGNS OF DISTRESS. HOB ELEVATED. A/O X4. VERBALLY RESPONSIVE, DENIES PAIN OR ANY DISCOMFORTS AT THIS TIME. ON ROOM AIR, BREATHING EVEN AND UNLABORED. TWO GALE DRAINS INTACT AND PATENT WITH SMALL AMOUNT OF CLEAR LIGHT YELLOWISH DRAINAGE NOTED. MORGAN MIDLINE INTACT AND PATENT WITH IVF INFUSING ORDERED. SAFETY MEASURES IN PLACE. BED IN LOW LOCKED POSITION WITH SIDE RAILS U PX2 CALL LIGHT WITHIN REACH. WILL CONTINUE TO MONITOR PT ACCORDINGLY.
[2019-01-09 08:00] VITALS: BP 125/72
[2019-01-09] MEDS: NEXIUM 40 MG VIAL IV SCH (08:50)
[2019-01-09] MEDS: SILVER SULFADIAZINE CREAM 25 GM TUBE TP SCH (08:51)
[2019-01-09 09:12] LABS: BASOPHILS # (AUTO) 0.2 /CMM (0.0-0.2); BASOPHILS % (AUTO) 2.2 % (0.0-2.0); HEMATOCRIT 42 % (33-45); LYMPHOCYTES # (AUTO) 1.4 /CMM (0.8-4.8); LYMPHOCYTES % (AUTO) 12.6 % (20.0-44.0); MEAN CORPUSCULAR HGB CONC 34 g/dl (31.0-36.0); MEAN CORPUSCULAR VOLUME 96 fL (82-100); MONOCYTES # (AUTO) 0.7 /CMM (0.1-1.30); MONOCYTES % (AUTO) 6.5 % (2.0-12.0); NEUTROPHILS # (AUTO) 8.4 /CMM (1.8-8.9); NEUTROPHILS % (AUTO) 77.7 % (43.0-81.0); PLATELET COUNT (AUTO) 421 /CMM (150-450); RED BLOOD CELL COUNT(AUTO) 4.35 MIL/uL (4.0-5.2); WHITE BLOOD COUNT (AUTO) 10.8 K/uL (4.3-11.0)
[2019-01-09 09:47] LABS: CALCIUM, SERUM 9.2 mg/dL (8.5-10.1); CREATININE 0.6 mg/dL (0.6-1.3); POTASSIUM 3.9 mmol/L (3.5-5.1)
[2019-01-09 10:29] LABS: BAND % (MANUAL) 4 % (0.0-5.0); LYMPHOCYTES % (MANUAL) 13 % (16-48); MONOCYTES % (MANUAL) 7 % (0-11.0); NEUTROPHILS % (MANUAL) 76 (42-76)
--- NOTE | 2019-01-09 12:13 | NUR ---
RN NOTES PATIENT C/O ACHING, THROBBING AND BURNING PAIN WITH SCALE OF 8/10 ON HER ABDOMEN. PRN MORPHINE SULFATE 4MG/2ML IVP ADMINISTERED AT 1209. WILL CONTINUE TO MONITOR AND REASSESS PT.
[2019-01-09 16:00] VITALS: BP 135/78
--- NOTE | 2019-01-09 18:41 | NUR ---
MS RN CLOSING NOTES PATIENT IN BED AWAKE AND WATCHING TV AT THIS TIME. HOB ELEVATED. A/O X4. ABLE TO MAKE NEEDS KNOWN. ON ROOM AIR, TOLERATING WELL WITH NO SOB NOTED THROUGHOUT THE DAY. PT WITH LEFT AND RIGHT GALE DRAINS IN PLACE AND NOTED WITH SEROUS DRAINAGE OF 7.5ML EACH GALE. MORGAN MIDLINE INTACT AND PATENT, IV ATB ZOSYN AT 25ML/HR INFUSING WELL AT THIS TIME. ALL NEEDS AND CARE ATTENDED WELL. SAFETY MEASURES KEPT IN PLACE. BED IN LOW LOCKED POSITION WITH SIDE RAILS U PX2. CALL LIGHT WITHIN REACH. WILL ENDORSE TO CYLINDER PRESS OPERATOR HELPER NURSE FOR LASHAWN.
[2019-01-09 20:00] VITALS: BP 148/64
[2019-01-09] MEDS: FLUCONAZOLE IN NS,PREMIX 100 MG in PREMIX 1 EA IV SCH ×2 (20:39)
[2019-01-09] MEDS: IV D5/ 0.9% NACL 1,000 ML IV PRN (23:56)
[2019-01-10] MEDS: PIPERACILLIN /TAZOBACTAM 3.375 G in IV D5W 100 ML IV SCH ×2 (02:53→10:41)
[2019-01-10] MEDS: MORPHINE SULFATE INJ 2 MG/ML DISP.SYRIN IV PRN ×4 (03:51→15:14)
[2019-01-10 04:00] VITALS: BP 132/77
--- NOTE | 2019-01-10 06:49 | NUR ---
RN NOTES, PATIENT SLEEPING AT THIS TIME, BREATHING EVEN ND UNLABORED NO S/S OF SOB/ACUTE DISTRESS NOTED AT THIS TIME, NO CHANGE IN CONDITION DURING THE NIGHT, ON PAIN MANAGEMENT, MINIMAL DRAINAGE IN BILATERAL GALE, WILL ENDORSE CONTINUITY OF CARE TO ONCOMING NURSE.
--- NOTE | 2019-01-10 07:30 | NUR ---
MS RN OPENING NOTE RECEIVED PT. A/OX4. NO ACUTE DISTRESS OR SOB NOTED. BI LATERAL GALE DRAINS INTACT AND DRAINING. IV SITE MORGAN MIDLINE C/D/I, RUNNING D5 NS @100mL/HR. REPORTS PASSING GAS. REPORTS 8/10 PAIN IN ABDOMEN. BOWEL SOUNDS ACTIVE IN ALL QUADS. VSS. BED LOCKED, LOW, SIDE RAILS UPX2, CALL LIGHT WITHIN REACH. PATIENT ABLE TO MAKE NEEDS KNOWN. WILL CONTINUE TO MONITOR
[2019-01-10 08:00] VITALS: BP 138/76
[2019-01-10 08:02] VITALS: BP 138/76
[2019-01-10] MEDS: SILVER SULFADIAZINE CREAM 25 GM TUBE TP SCH (08:10)
[2019-01-10] MEDS: NEXIUM 40 MG VIAL IV SCH (08:10)
[2019-01-10] MEDS ORDERED: AMOX-430 PO (12:25)
[2019-01-10] MEDS ORDERED: PANT40TA2 PO (12:25)
--- NOTE | 2019-01-10 16:30 | NUR ---
RN D/C NOTE PT. IN STABLE CONDITION. LEAVING WITH FRIEND/CAREGIVER BRANDY VIA PRIVATE CAR. PATIENT GOING HOME WITH HOME HEALTH AND PT. SHE REPORTS HER HAS A 24HR CAREGIVER SO THEY ARE NEVER ALONE. RIGHT MIDLINE REMOVED, CATHETER INTACT. PRESSURE DRESSING APPLIED. D/C EDUCATION PROVIDED REGARDING MED SIDE EFFECTS, CORE MEASURES, S/S INFECTION AND EMERGENCIES. ALL BELONGINGS ACCOUNTED FOR. Addendum: 01/10/19 at 1700 by EUGENIO PAUL RN GALE DRAINS INTACT. EDUCATION PROVIDED ABOUT CARE. PT. TO FOLLOW UP WITH DR ENGLAND IN ONE WEEK. INFORMATION GIVEN
== END 2019-01-10 17:00 | disposition home health service (06) | DRG 853 ==
LOC: ER 10:14 → ICU 12:35 → TELE-TD 01-04 05:09 → TELE1 01-04 10:27 → MEDSG1 01-05 10:47
PROVIDERS: ADMIT Nurse Practitioner Acute Care; ATTEND Nurse Practitioner Acute Care
DX: A41.9 Sepsis, unspecified organism (principal); K25.1 Acute gastric ulcer with perforation; K65.9 Peritonitis, unspecified; E87.1 Hypo-osmolality and hyponatremia; E44.0 Moderate protein-calorie malnutrition; Z68.1 Body mass index [BMI] 19.9 or less, adult; M19.90 Unspecified osteoarthritis, unspecified site; F29 Unspecified psychosis not due to a substance or known physiological condition; D72.829 Elevated white blood cell count, unspecified; J45.909 Unspecified asthma, uncomplicated; E87.6 Hypokalemia; E83.42 Hypomagnesemia; E83.39 Other disorders of phosphorus metabolism; Z87.891 Personal history of nicotine dependence; Z79.1 Long term (current) use of non-steroidal anti-inflammatories (NSAID); Z79.52 Long term (current) use of systemic steroids; Z79.82 Long term (current) use of aspirin; D69.2 Other nonthrombocytopenic purpura; S81.011A Laceration without foreign body, right knee, initial encounter; X58.XXXA Exposure to other specified factors, initial encounter; Y92.89 Other specified places as the place of occurrence of the external cause; M21.611 Bunion of right foot
CPT/HCPCS: 36415; 71045-TC; 74246-TC; 80048-TC; 80053-TC; 80061-TC; 80076-TC; 81000-TC; 82945-TC; 82962-TC; 83690-TC; 83735-TC; 84100-TC; 84443-TC; 84484-TC; 85025-TC; 85730-TC; 86850-TC; 87081-TC; 88305-TC; 88312-TC; 88313-TC; 88342; 94799-TC; 97110-TC; 97116-TC; 97530-TC; A4216; A6209; A6402; A6403; A9563; C9113; G0378; J0690; J1450; J1610; J1720; J2001; J2270; J2405; J2543; J3010; J3370; J3475; J3480; J3490; J7030; J7040; J7042; J7060; J7120; Q9963

== ENCOUNTER 2024-11-29 15:45 | Emergency (ER) | payer MEDICARE, BC ==
[~2024-11-29] VITALS: Ht 165.1 cm; Wt 44.0 kg
[~2024-11-29 15:45] MED LIST changes: -AMIT10TA6 PO; +AMOX-430 PO; -ASPI-1152 PO; +ASPI-605 PO; -DULO30CA2 PO; -GABA-534 PO; +GABA100C GT; +HYDR-4303 PO; +MELO-105 PO; -NITR100C PO; +PANT40TA2 PO; -PRED5TAB48 PO; -SULF500T8 PO; +TEMA15CA PO
[2024-11-29 16:10] VITALS: TEMP 98.6
[2024-11-29] MEDS ORDERED: predniSONE 20 MG TABLET ONE (16:35)
[2024-11-29] MEDS: predniSONE 20 MG TABLET PO ONE (16:36)
[2024-11-29 17:30] VITALS: O2SAT 99
[2024-11-29 17:30] LABS: BASOPHILS # (AUTO) 0.1 K/uL (0.0-0.2); BASOPHILS % (AUTO) 1.1 % (0.0-2.0); EOSINOPHILS # (AUTO) 0.1 K/uL (0.0-0.7); EOSINOPHILS % (AUTO) 1.2 % (0.0-6.0); HEMATOCRIT 33 % (33-45); HEMOGLOBIN 11.2 g/dL (11.5-14.8); LYMPHOCYTES % (AUTO) 24.9 % (20.0-44.0); MEAN CORPUSCULAR HEMOGLOBIN 27 PG (26.0-33.0); MEAN CORPUSCULAR HGB CONC 34 g/dl (31.0-36.0); MEAN CORPUSCULAR VOLUME 78 fL (82-100); MONOCYTES # (AUTO) 0.6 K/uL (0.1-1.30); MONOCYTES % (AUTO) 7.9 % (2.0-12.0); NEUTROPHILS # (AUTO) 5.3 K/uL (1.8-8.9); NEUTROPHILS % (AUTO) 64.9 % (43.0-81.0); PLATELET COUNT (AUTO) 384 K/uL (150-450); RED CELL DISTRIBUTION WIDTH 17.8 % (11.5-15.0); WHITE BLOOD COUNT (AUTO) 8.2 K/uL (4.3-11.0)
[2024-11-29] MEDS: IPRATROPIUM NEB FS 0.5 MG/2.5 ML AMPUL.NEB NEB ONE (17:30)
[2024-11-29] MEDS: ALBUTEROL FS 2.5 MG/3 ML VIAL.NEB CONTNEB ONE (17:30)
[2024-11-29 17:38] LABS: CALCIUM, SERUM 8.7 mg/dL (8.5-10.1); CARBON DIOXIDE 23 mmol/L (21-32); CHLORIDE 91 mmol/L (98-107); CREATININE 0.7 mg/dL (0.6-1.3); GLUCOSE 103 mg/dL (74-106); SODIUM SERUM 124 mmol/L (136-145); UREA NITROGEN, BLOOD 10 mg/dL (7-18)
[2024-11-29 17:51] LABS: ALANINE AMINOTRANSFERASE 29 U/L (12-78); ALBUMIN 3.8 g/dL (3.4-5.0); ALKALINE PHOSPHATASE 124 U/L (46-116); ASPARTATE AMINOTRANSFERASE 22 U/L (15-37); BILIRUBIN,DIRECT 0.1 mg/dL (0.0-0.2); BILIRUBIN,TOTAL 0.4 mg/dL (0.2-1.0); NT-PRO BNP 310 pg/mL (0-125)
[2024-11-29] MEDS ORDERED: ALBUTEROL FS 2.5 MG/3 ML VIAL.NEB ONE (17:56)
[2024-11-29] MEDS ORDERED: IPRATROPIUM NEB FS 0.5 MG/2.5 ML AMPUL.NEB ONE (17:56)
[2024-11-29 18:05] VITALS: O2SAT 100
[2024-11-29] MEDS ORDERED: PRED50TA PO (18:27)
[2024-11-29 18:34] VITALS: BP 145/92; O2SAT 100
== END 2024-11-29 18:34 | disposition home or self-care (01) ==
LOC: ER 15:54
DX: J45.909 Unspecified asthma, uncomplicated (principal); Z79.1 Long term (current) use of non-steroidal anti-inflammatories (NSAID); Z79.82 Long term (current) use of aspirin; Z79.899 Other long term (current) drug therapy; Z91.012 Allergy to eggs; Z91.011 Allergy to milk products; Z91.013 Allergy to seafood; Z91.018 Allergy to other foods
CPT/HCPCS: 99285; 71045; 93005; 85025; 80048; 80076; 36415; 84484; 83880; 94640; J7512